=== PATIENT | female | born 1960 | race Hispanic/Latino ===

== ENCOUNTER 2016-10-27 19:46 | Emergency (ER) | payer OTHER, BC ==
[~2016-10-27] VITALS: Ht 152.4 cm; Wt 65.9 kg
[~2016-10-27 19:46] MED LIST: ADVIL200 MG PO; NAPROSYN500 MG PO; PREDNISONE20 MG PO
[2016-10-27 22:44] VITALS: BP 162/88
== END 2016-10-27 22:45 | disposition home or self-care (01) ==
LOC: EME 19:46
DX: S89.91XA Unspecified injury of right lower leg, initial encounter (principal); W01.0XXA Fall on same level from slipping, tripping and stumbling without subsequent striking against object, initial encounter; Y99.0 Civilian activity done for income or pay
CPT/HCPCS: 73564; 99281; 99284